=== PATIENT | female | born 1980 | race Caucasian/White ===

== ENCOUNTER 2019-12-26 18:03 | Emergency (ER) | payer OTHER, SELFPAY ==
--- NOTE | ~2019-12-26 | XR_ITS ---
XR ankle RT min 3V 12/26/2019 19:33 INDICATION: Right ankle pain PROCEDURE: 4 views right ankle COMPARISON: No prior studies for comparison. FINDINGS: Fracture, dislocation or subluxation is not identified. There is a degenerative calcaneal e nthesophyte. There are degenerative changes of the midfoot. The soft tissues appear within normal [place] its. No foreign bodies are identified. IMPRESSION: 1: NO ACUTE BONE OR JOINT ABNORMALITY IDENTIFIED. Reviewed, dictated and finalized at location A.
[2019-12-26 18:15] VITALS: BP 134/82; PULSE 87; RESP 16; TEMP 36.8; O2SAT 100
--- NOTE | 2019-12-26 18:46 | ED.GENADULT ---
HPI - General Adult General Chief complaint: Extremity Injury, Lower Stated complaint: right foot pain Time Seen by Provider: 12/26/19 18:20 Source: patient Mode of arrival: ambulatory Limitations: no limitations History of Present Illness HPI narrative: Patient is a 38-year-old female who presents to emergency department with several months duration of medial right ankle pain worse with weightbearing and activity denies injury or trauma has not been seen for this complaint nor she taken anything for her symptoms patient on arrival in the room in no distress Related Data Allergies Allergy/AdvReac Type Severity Reaction Status Date / Time No Known Allergies Allergy Unverified 06/03/17 13:22 Review of Systems Review of Systems: Narrative: SKIN: Denies bruising or swelling MUSCULOSKELETAL: Positive for right ankle pain NEUROLOGIC: Denies numbness PMFSH Social History Social History (Updated 12/26/19 @ 18:48 by Glenroy Desir PA-C) Smoking status: Never smoker Exam Narrative: Exam Narrative: GENERAL: Well-appearing, well-nourished, and in no acute distress. HEAD: Normocephalic, atraumatic. EYES: PERRLA and EOMI. ENT: Nares clear, no rhinorrhea or epistaxis. Mucous membranes moist. EXTREMITIES: Normal range of motion. No edema. Tenderness of the medial aspect of the right ankle no deformity noted SKIN: Warm, dry, no rash. NEURO: No focal deficits. Alert and oriented x3. Neurovascularly intact PSYCH: Normal mood and affect. Course Course Emergency Course: Patient in the room in no distress aware of case findings treatment plan and diagnosis agreeing to follow-up as directed Vital Signs Vital signs: Vital Signs Temperature 98.3 F 12/26/19 18:15 Pulse Rate 87 12/26/19 18:15 Respiratory Rate 16 12/26/19 18:15 Blood Pressure 134/82 12/26/19 18:15 Pulse Oximetry 100 12/26/19 18:15 Temperature 98.3 F 12/26/19 18:15 Pulse Rate 87 12/26/19 18:15 Respiratory Rate 16 12/26/19 18:15 Blood Pressure 134/82 12/26/19 18:15 Pulse Oximetry 100 12/26/19 18:15 Medical Decision Making MDM Narrative Medical decision making narrative: Patients injury or pain is consistent with musculoskeletal etiology. No signs of neurological or vascular compromise on exam. Compartments and tisues are soft without signs of compartment syndrome. Pain is felt appropriate for further evaluation on an outpatient basis. Vital Signs Vital Signs: Vital Signs Temperature 98.3 F 12/26/19 18:15 Pulse Rate 87 12/26/19 18:15 Respiratory Rate 16 12/26/19 18:15 Blood Pressure 134/82 12/26/19 18:15 Pulse Oximetry 100 12/26/19 18:15 Temperature 98.3 F 12/26/19 18:15 Pulse Rate 87 12/26/19 18:15 Respiratory Rate 16 12/26/19 18:15 Blood Pressure 134/82 12/26/19 18:15 Pulse Oximetry 100 12/26/19 18:15 Discharge Plan Discharge Clinical Impression: Acute right ankle pain Patient Disposition: Home, Self-Care Condition: Stable Instructions: Antibiotic Form, Arthralgia (ED) Additional Instructions: Wear Charan wrap with limited weight on the affected leg until able to bear weight without pain. Ice and elevate extremity. Pain medication as needed and directed. Follow up with your doctor for further care in the next 7 days. Return if symptoms worsen or concerns or any increase in redness swelling pain or fever over 100.5 Prescriptions: New meloxicam 15 mg tablet 15 mg PO ONCE Qty: 7 RF: 0 Follow-up/Referrals: UNKNOWN,DOCTOR [Primary Care Provider] - Vincent North MD [Physician] - Stand Alone Forms: Work/School Release IP
[2019-12-26] MEDS: KETOROLAC (*BKC) 60 MG/2 ML VIAL IM (18:57)
--- NOTE | 2019-12-26 18:58 | PC.NURSE ---
pt refuses discharge until she gets xray of rt foot and ankle. notified
== END 2019-12-26 20:20 | disposition home or self-care (01) ==
PROVIDERS: Emergency Provider Emergency Medicine
DX: M25.571 Pain in right ankle and joints of right foot (principal)
CPT/HCPCS: 73610; 96372; 99283; J1885